=== PATIENT | male | born 2005 | race Caucasian/White ===

== ENCOUNTER 2024-05-27 16:02 | Emergency (ER) | payer OTHER, SELFPAY ==
--- NOTE | ~2024-05-27 | XR_ITS ---
XR ankle RT min 3V Ordering provider: MERLYN Sung History: . INVERSION INJURY, LAT TARSAL PAIN . Comparison: None. FINDINGS: BONES: No acute fracture or dislocation. JOINT SPACES: Normal. SOFT TISSUES: Normal. IMPRESSION: No acute osseous abnormality of the right ankle. Reviewed, dictated and finalized at location A.
[2024-05-27 16:10] VITALS: BP 139/81; PULSE 93; RESP 16; TEMP 36.8; O2SAT 99
--- NOTE | 2024-05-27 16:35 | ED.LOWEXIN ---
HPI - Extremity Injury (Lower) General Chief Complaint: Extremity Injury, Lower Stated Complaint: right ankle injury Time Seen by Provider: 05/27/24 16:21 Source: patient and RN notes reviewed Mode of arrival: ambulatory Limitations: no limitations History of Present Illness HPI Narrative: Patient presents today complaining right lateral ankle pain. He twisted his ankle while walking down some wet stairs yesterday in the rain. Denies numbness or tingling. Currently rates his pain 1/10 at rest, which increases to 5/10 with weight-bearing. He has elevated the ankle and wore a brace with short-term relief. Related Data Home Medications Medication Instructions Recorded Confirmed No Home Medications 05/27/24 05/27/24 Allergies Allergy/AdvReac Type Severity Reaction Status Date / Time No Known Allergies Allergy Verified 05/27/24 16:21 Review of Systems Review of Systems: CONSTITUTIONAL: Denies body aches, fever, chills, or sweats. EYES: Denies visual changes, redness, or discharge. ENT: Denies rhinorrhea, congestion, sore throat, or otalgia. CARDIOVASCULAR: Denies chest pain, palpitations, or edema. RESPIRATORY: Denies cough or dyspnea. GASTROINTESTINAL: Denies abdominal pain, nausea, vomiting, or diarrhea. GENITOURINARY: Denies dysuria or hematuria. SKIN: Denies rash, itching, or wounds. MUSCULOSKELETAL: Denies back pain, or myalgia.+ right ankle pain NEUROLOGIC: Denies headache, numbness, tingling, or weakness. PSYCH: Denies depression or anxiety. PMFSH Comments At time of signature, I have reviewed and agree with nursing past medical, surgical, social and family history unless otherwise noted. Please see nursing chart for further information. There is no relevant family history pertinent to the presenting complaint Exam Narrative: GENERAL: Well-appearing, well-nourished, and in no acute distress. HEAD: Normocephalic, atraumatic. EYES: EOMI. No redness or drainage. Conjunctivae normal. ENT: Mucous membranes pink and moist. NECK: Normal AROM. CHEST: No respiratory distress. EXTREMITIES: Right ankle: Tenderness to the lateral ankle with mild soft tissue swelling. No bony tenderness of the lateral malleolus. No tenderness medially or posteriorly. No tenderness to the foot. Distal sensation intact. Capillary refill normal. Pedal pulse normal. No color change. Full range of motion of the toes. Full P ROM of the ankle with some increased pain laterally. SKIN: Warm, dry, no rash. Capillary refill normal. Normal skin turgor. NEURO: No focal deficits. Alert and oriented x3. Gait steady. PSYCH: Normal affect. No signs of depression or anxiety. Course Course Level of Care: Express Care Visit Vital Signs Vital signs: Vital Signs Temperature 98.3 F 05/27/24 16:10 Pulse Rate 93 05/27/24 16:10 Respiratory Rate 16 05/27/24 16:10 Blood Pressure 139/81 05/27/24 16:10 Pulse Oximetry 99 05/27/24 16:10 Oxygen Delivery Room Air 05/27/24 16:10 Temperature 98.3 F 05/27/24 16:10 Pulse Rate 93 05/27/24 16:10 Respiratory Rate 16 05/27/24 16:10 Blood Pressure 139/81 05/27/24 16:10 Pulse Oximetry 99 05/27/24 16:10 Oxygen Delivery Room Air 05/27/24 16:10 Reviewed MDM - Extremity Injury (Lower) MDM Narrative Medical decision making narrative: Ankle x-ray negative for fracture. Patient has an ankle brace at home that he will wear. Anticipatory guidance given. Differential Diagnosis Differential diagnosis: Likely ankle sprain and strain and ankle fracture Imaging Data Radiologist's impression: ITS Impressions Ankle X-Ray 05/27/24 16:42 IMPRESSION: No acute osseous abnormality of the right ankle. Critical Care Time Critical Care Time Critical Care Time: No Discharge Plan Discharge Clinical Impression: Right ankle sprain Qualifiers: Encounter type: initial encounter Involved ligament of ankle: unspecified ligament Qualifie
== END 2024-05-27 17:20 | disposition home or self-care (01) ==
PROVIDERS: Emergency Provider Nurse Practitioner; PCP Internal Medicine
DX: S93.401A Sprain of unspecified ligament of right ankle, initial encounter (principal); X50.9XXA Other and unspecified overexertion or strenuous movements or postures, initial encounter
CPT/HCPCS: 73610; 99203; G0463